=== PATIENT | male | born 1965 | race African-American/Black ===

== ENCOUNTER 2019-05-22 02:12 | Inpatient (IN) | payer MEDICAID ==
[~2019-05-22] VITALS: Ht 185.4 cm; Wt 136.5 kg
[2019-05-22] VITALS (8 sets, daily range): BP systolic 147–192; BP diastolic 73–143
[2019-05-22] MEDS ORDERED: NITROGLYCERIN 50MG PREMIX 250 ML IV ONE ×2 (02:21→02:27)
[2019-05-22] MEDS ORDERED: ALBUTEROL (0.083%) 2.5MG/3ML NEB HHN STA (02:27)
[2019-05-22] MEDS ORDERED: IPRATROPIUM BROMIDE (0.02%) 0.5MG/2.5ML NEB HHN STA (02:27)
[2019-05-22] MEDS ORDERED: FUROSEMIDE 40MG/4ML VIAL IV ONE (02:30)
[2019-05-22 02:41] LABS: BASOPHILS % 0.6 % (0.0-2.0); HEMATOCRIT. 44.9 % (42.0-52.0); HEMOGLOBIN. 15.2 g/dL (14.0-18.0); LYMPHOCYTES % 23.7 % (20.0-50.0); MEAN CORPUSCULAR HEMOGLOBIN 29.2 pg (28.0-32.0); MEAN CORPUSCULAR VOLUME 86.4 fL (80.0-94.0); MEAN PLATELET VOLUME 7.2 fl (7.4-10.4); MONOCYTES % 6.6 % (2.0-8.0); NEUTROPHILS % 63.1 % (40.0-76.0); PLATELET 224 x1000/uL (130-400); RED CELL DISTRIBUTION WIDTH 15.6 % (11.6-14.6)
[2019-05-22 02:46] LABS: CHLORIDE 107 mEq/L (98-107)
[2019-05-22] MEDS ORDERED: MORPHINE SULFATE 2 MG/ML CPJ (NOT FOR IM USE) IV PRN (07:15)
[2019-05-22] MEDS ORDERED: MAGNESIUM/ALUMINUM HYDROXIDE/SIMETHICONE 30ML UDC PO PRN (07:15)
[2019-05-22] MEDS ORDERED: GUAIFENESIN 200MG/10ML SUGAR FREE UDC PO PRN (07:15)
[2019-05-22] MEDS ORDERED: ONDANSETRON HCL 4MG/2ML INJ IV PRN (07:15)
[2019-05-22] MEDS ORDERED: ACETAMINOPHEN 325MG TABLET PO PRN (07:15)
[2019-05-22] MEDS ORDERED: DOCUSATE SODIUM 100MG CAPSULE PO PRN (07:15)
[2019-05-22] MEDS ORDERED: LISINOPRIL 20MG TABLET PO SCH (07:30)
[2019-05-22] MEDS ORDERED: FUROSEMIDE 40MG/4ML VIAL IV SCH (07:30)
[2019-05-22] MEDS: AMLODIPINE 10MG TABLET PO SCH (07:56)
[2019-05-22] MEDS: METOPROLOL TARTRATE 25MG TABLET PO SCH ×2 (10:24→20:08)
[2019-05-22] MEDS: ASPIRIN 81MG EC TABLET PO SCH (10:24)
[2019-05-22] MEDS: ENOXAPARIN 40MG/0.4ML SYR SUBCUT SCH (10:24)
[2019-05-22 10:34] LABS: *AMPHETAMINES SCREEN URINE NEGATIVE (NEGATIVE); *BARBITURATES SCREEN URINE NEGATIVE (NEGATIVE); *BENZODIAZEPINES SCREEN URINE NEGATIVE (NEGATIVE); *COCAINE SCREEN URINE NEGATIVE (NEGATIVE); METHADONE URINE SCREEN NEGATIVE (NEGATIVE)
[2019-05-22 10:35] LABS: CANNABINOID URINE SCREEN PRESUMTIVE POSITIVE (NEGATIVE); OPIATES URINE SCREEN NEGATIVE (NEGATIVE); PHENCYCLIDINE URINE SCREEN NEGATIVE (NEGATIVE)
[2019-05-22] MEDS: HYDRALAZINE HCL 25MG TABLET PO SCH ×2 (13:49→21:16)
[2019-05-22] MEDS: FUROSEMIDE 40MG/4ML VIAL IV SCH ×2 (13:49→17:14)
[2019-05-22] MEDS: HYDROCODONE/ACETAMINOPHEN 5/325MG TABLET PO PRN ×2 (14:27→23:18)
[2019-05-23] VITALS (9 sets, daily range): BP systolic 117–170; BP diastolic 73–106
[2019-05-23 00:21] LABS: CREATINE KINASE 168 IU/L (39-308)
[2019-05-23] MEDS: CLONIDINE 0.1MG TABLET PO PRN (04:50)
[2019-05-23] MEDS: HYDRALAZINE HCL 25MG TABLET PO SCH ×3 (05:01→21:30)
[2019-05-23 07:19] LABS: BG BASE EXCESS 7.5 mmol/L (-2.0-2.0); BG CARBOXYHEMOGLOBIN 1.2 % (0.5-1.5); BG DEOXYHEMOGLOBIN 4.5 % (0.0-5.0); BG FRACTION INSPIRED OXYGEN 28; BG HCO3 ACT 33.6 mmol/L (22.0-26.0); BG METHEMOGLOBIN 0.2 % (0.0-1.5); BG OXYGEN SATURATION 95.4 % (92.0-98.5); BG OXYHEMOGLOBIN 94.1 % (94.0-97.0); BG PCO2 52.1 mmHg (35.0-45.0); BG PH 7.428 (7.350-7.450); BG PO2 72.5 mmHg (75.0-100.0); BG SAMPLE SITE LEFT RADIAL; BG TOTAL HEMOGLOBIN 16.2 g/dL (12.0-18.0); BG VENT MODE NASAL CANNULA
[2019-05-23 07:34] LABS: CHLORIDE 102 mEq/L (98-107)
[2019-05-23 07:40] LABS: BASOPHILS % 0.4 % (0.0-2.0); EOSINOPHILS % 7.4 % (0.0-5.0); HEMATOCRIT. 46.1 % (42.0-52.0); HEMOGLOBIN. 15.2 g/dL (14.0-18.0); LYMPHOCYTES % 32.8 % (20.0-50.0); MEAN CORPUSCULAR HEMOGLOBIN 28.5 pg (28.0-32.0); MEAN CORPUSCULAR VOLUME 86.5 fL (80.0-94.0); MEAN PLATELET VOLUME 7.5 fl (7.4-10.4); NEUTROPHILS % 49.4 % (40.0-76.0); PLATELET 217 x1000/uL (130-400); RED BLOOD CELL COUNT 5.32 mill/uL (4.7-6.1); RED CELL DISTRIBUTION WIDTH 16.1 % (11.6-14.6)
[2019-05-23 07:45] LABS: LDL CHOLESTEROL 72 mg/dL (5-100)
[2019-05-23 07:47] LABS: HDL CHOLESTEROL 38 mg/dL (40-59)
[2019-05-23] MEDS: METOPROLOL TARTRATE 25MG TABLET PO SCH (09:00)
[2019-05-23] MEDS: AMLODIPINE 10MG TABLET PO SCH (09:16)
[2019-05-23] MEDS: FUROSEMIDE 40MG/4ML VIAL IV SCH ×3 (09:16→18:56)
[2019-05-23] MEDS: ENOXAPARIN 40MG/0.4ML SYR SUBCUT SCH (09:17)
[2019-05-23] MEDS: ASPIRIN 81MG EC TABLET PO SCH (09:19)
[2019-05-23] MEDS: LISINOPRIL 20MG TABLET PO SCH (09:19)
[2019-05-23] MEDS: POTASSIUM CHLORIDE 20MEQ TABLET SR PO SCH (09:19)
[2019-05-23] MEDS: HYDROCODONE/ACETAMINOPHEN 5/325MG TABLET PO PRN ×2 (09:42→21:26)
[2019-05-24] VITALS: BP 134/94
[2019-05-24 04:00] VITALS: BP 151/99
[2019-05-24] MEDS: CLONIDINE 0.1MG TABLET PO PRN (04:23)
[2019-05-24] MEDS: HYDRALAZINE HCL 25MG TABLET PO SCH (06:52)
[2019-05-24] MEDS: FUROSEMIDE 40MG/4ML VIAL IV SCH (06:57)
[2019-05-24 08:00] VITALS: BP 137/92
[2019-05-24] MEDS: LISINOPRIL 20MG TABLET PO SCH (09:25)
[2019-05-24] MEDS: AMLODIPINE 10MG TABLET PO SCH (09:26)
[2019-05-24] MEDS: ASPIRIN 81MG EC TABLET PO SCH (09:26)
[2019-05-24] MEDS: ENOXAPARIN 40MG/0.4ML SYR SUBCUT SCH (09:27)
[2019-05-24] MEDS: HYDROCODONE/ACETAMINOPHEN 5/325MG TABLET PO PRN (09:27)
[2019-05-24] MEDS: POTASSIUM CHLORIDE 20MEQ TABLET SR PO SCH (09:27)
[2019-05-24] MEDS ORDERED: FURO40TA5 MT (10:34)
[2019-05-24] MEDS ORDERED: HYDR-4134 MT (10:34)
[2019-05-24] MEDS ORDERED: TRAM50TA94 MT (10:34)
[2019-05-24] MEDS ORDERED: AMLO10TA80 MT (10:34)
[2019-05-24] MEDS ORDERED: BENA40TA9 MT (10:34)
[2019-05-24 12:00] VITALS: BP 129/75
[2019-05-24 13:25] VITALS: BP 129/75
== END 2019-05-24 15:15 | disposition home or self-care (01) | DRG 194 ==
LOC: ER 02:12 → 3WST 03:08 → ENRESERV 07:37 → CANRESERV 07:37 → ENRESERV 08:19 → 5WST 05-23 10:23
PROVIDERS: ADMIT Hospitalist; ATTEND Hospitalist
PROC: 5A09357 Assistance with Respiratory Ventilation, Less than 24 Consecutive Hours, Continuous Positive Airway Pressure (ICD-10-PCS; principal; 2019-05-22)
DX: I11.0 Hypertensive heart disease with heart failure (principal); F17.200 Nicotine dependence, unspecified, uncomplicated; I50.23 Acute on chronic systolic (congestive) heart failure; T44.7X5A Adverse effect of beta-adrenoreceptor antagonists, initial encounter; Z91.14 Patient's other noncompliance with medication regimen; R00.1 Bradycardia, unspecified; Y92.89 Other specified places as the place of occurrence of the external cause
CPT/HCPCS: 36415; 36600; 71045; 80061; 80305; 82375; 82550; 82805; 83880; 84484; 93005; 93306; 93970; 94640; 94660; 99291; C1893; J1650; J1940; J2270; J3490; J7611